=== PATIENT | female | born 1955 | race Caucasian/White ===

== ENCOUNTER → 2017-12-17 | Outpatient (CLI) | payer BC ==
[~2017-12-17] MED LIST: ASCO-182 PO; ASPI-715 PO; CALC500T76 PO; CHOL100052 PO; CIPR-344 PO; FISH OIL1 CAP PO; LEV100 PO; LEVO88TA45 PO; MULT-820 PO; NIA100 PO; PHEN200T32 PO; UBIQ100C3 PO; VITA100C12 PO
--- NOTE | 2017-12-17 15:09 | RADIOLOGY IMAGING REPORT ---
FACILITY: [facility] PATIENT NAME: JUANITA GROSS : [id number] MR: [id number] V: [id number] EXAM DATE: ORDERING PHYSICIAN: AVE CALHOUN TECHNOLOGIST: Darby Fritz PROCEDURE:BILATERAL DIGITAL SCREENING MAMMOGRAM WITH CAD ASSISTED INTERPRETATION & 3D TOMOSYNTHESIS COMPARISON:Prior mammograms 11/02/16, 06/11/14, 04/16/13, 02/11/12, 06/04/11. INDICATIONS:SCREENING FINDINGS: Mildly heterogeneous fibroglandular tissue is seen throughout the breasts. The parenchymal pattern has remained stable allowing for difference in mammographic technique & patient positioning. There is no evidence of malignant appearing mass, malignant appearing calcifications or other secondary sign of malignancy in either breast. DIAGNOSTIC CATEGORY 1--NEGATIVE. RECOMMENDATIONS: ROUTINE MAMMOGRAM AND CLINICAL EVALUATION. IMPRESSION: BIRADS 1: Negative. No significant abnormality is seen. Dictated by: Ellen Nunez M.D. on 12/17/2017 at 14:48 Transcribed by: DANYA on 12/17/2017 at 15:00 Approved by: Ellen Nunez M.D. on 12/17/2017 at 15:07 [facility]
== END ==
LOC: MAMO 01:03
PROVIDERS: ATTEND Family Medicine
DX: Z12.31 Encounter for screening mammogram for malignant neoplasm of breast (principal)
CPT/HCPCS: 77063; 77067